=== PATIENT | female | born 1950 | race Caucasian/White ===

== ENCOUNTER 2016-08-29 09:23 | Emergency (ER) | payer MEDICARE ==
[2016-08-29] MEDS ORDERED: Ibuprofen 200 MG TAB ONE (10:06)
[2016-08-29] MEDS ORDERED: Ondansetron ODT 4 MG TAB ONE (10:06)
[2016-08-29] MEDS ORDERED: Amoxicillin/Potassium Clav 875 MG TAB ONE (10:06)
== END 2016-08-29 10:14 | disposition home or self-care (01) ==
LOC: NAV ERS 09:23
DX: J34.0 Abscess, furuncle and carbuncle of nose (principal); J01.90 Acute sinusitis, unspecified; I10 Essential (primary) hypertension; Z79.899 Other long term (current) drug therapy
CPT/HCPCS: 99283; Q0162

== ENCOUNTER 2023-04-14 11:48 | Outpatient (CLI) | payer MEDICARE | END 2023-04-14 11:49 | disposition home or self-care (01) | LOC: NAV RAD 11:48 | PROVIDERS: ATTEND Family Medicine | DX: S20.211D Contusion of right front wall of thorax, subsequent encounter (principal) ==